=== PATIENT | male | born 1950 | race African-American/Black ===

== ENCOUNTER 2018-03-15 09:12 | Emergency (ER) | payer OTHER ==
[~2018-03-15] VITALS: Ht 185.4 cm; Wt 103.0 kg
[2018-03-15] MEDS ORDERED: SODIUM CHLORIDE 0.9% 1,000 ML IV ONE (09:35)
[2018-03-15 10:15] LABS: BASOPHILS % 0.5 % (0.0-2.0); EOSINOPHILS % 0.9 % (0.0-5.0); HEMATOCRIT. 36.5 % (42.0-52.0); HEMOGLOBIN. 12.3 g/dL (14.0-18.0); LYMPHOCYTES % 19.5 % (20.0-50.0); MEAN CORPUSCULAR HEMOGLOBIN 28.4 pg (28.0-32.0); MEAN CORPUSCULAR VOLUME 84.6 fL (80.0-94.0); MEAN PLATELET VOLUME 9.7 fl (7.4-10.4); MONOCYTES % 7.2 % (2.0-8.0); NEUTROPHILS % 71.9 % (40.0-76.0); PLATELET 197 x1000/uL (130-400); RED BLOOD CELL COUNT 4.32 mill/uL (4.7-6.1); RED CELL DISTRIBUTION WIDTH 16.4 % (11.6-14.6)
[2018-03-15 10:21] LABS: CHLORIDE 111 mEq/L (98-107)
[2018-03-15 10:22] LABS: PROTHROMBIN TIME 10.5 sec (9.1-11.1)
[2018-03-15] MEDS ORDERED: SODIUM CHLORIDE 0.9% 1000ML BAG (SEPSIS BOLUS) IV ONE (10:45)
[2018-03-15] MEDS ORDERED: ASPIRIN 325MG EC TABLET PO ONE (10:45)
[2018-03-15 11:21] LABS: CLARITY URINE CLEAR (CLEAR); COLOR URINE YELLOW (YELLOW); KETONES URINE NEGATIVE (NEGATIVE); LEUKOCYTE ESTERASE URINE NEGATIVE (NEGATIVE); NITRITE URINE NEGATIVE (NEGATIVE); OCCULT BLOOD URINE NEGATIVE (NEGATIVE); PROTEIN URINE NEGATIVE (NEGATIVE); UROBILINOGEN URINE 0.2 E.U./dL (0.2-1.0)
[2018-03-15 13:30] VITALS: BP 116/66
== END 2018-03-15 13:54 | disposition short-term general hospital (02) ==
LOC: ER 09:12 → CANBEDREQ 03-16 00:17
DX: R55 Syncope and collapse (principal); R56.9 Unspecified convulsions; N17.9 Acute kidney failure, unspecified; E87.2 Acidosis; I10 Essential (primary) hypertension; Z79.82 Long term (current) use of aspirin
CPT/HCPCS: 36415; 70450; 71045; 80053; 81003; 83605; 84484; 85025; 85610; 87040; 87086; 93005; 96360; 96361; 99291; J7030